=== PATIENT | male | born 1995 | race Two or more races ===

== ENCOUNTER 2016-11-23 07:38 | Emergency (ER) | payer OTHER ==
[~2016-11-23] VITALS: Ht 175.3 cm; Wt 63.5 kg
[2016-11-23 08:02] VITALS: BP 115/78
[2016-11-23] MEDS ORDERED: KETOROLAC TROMETH 30 MG/ML 1ML VIAL IM ONE (08:30)
== END 2016-11-23 09:00 | disposition home or self-care (01) ==
LOC: ER 07:38
DX: R07.89 Other chest pain (principal); F12.10 Cannabis abuse, uncomplicated; J45.909 Unspecified asthma, uncomplicated
CPT/HCPCS: 71020; 93005; 96372; 99284; J1885

== ENCOUNTER 2019-08-27 16:27 | Emergency (ER) | payer OTHER ==
[~2019-08-27] VITALS: Ht 167.6 cm; Wt 56.7 kg
[2019-08-27 17:11] LABS: Urine WBC None Seen /hpf (0 - 3)
[2019-08-27 17:20] LABS: Basophils # (auto) 0 10 ^3/uL (0-0.2); Basophils % (auto) 0.3 % (0.0-2.0); Eosinophils # (auto) 0 10 ^3/uL (0-0.8); Hematocrit 50.3 % (41.0-53.0); Hemoglobin 16.9 g/dL (13.5-17.5); Lymphocytes % (auto) 17.1 % (10.0-50.0); Mean Corpuscular Hemoglobin 31.3 pg (28.0-32.0); Mean Corpuscular Hgb Conc. 33.5 g/dL (32.0-36.0); Mean Corpuscular Volume 93.4 fL (80.0-100.0); Monocytes # (auto) 0.8 10 ^3/uL (0-1.3); Monocytes % (auto) 13.3 % (0.0-12.0); Neutrophils # (auto) 4.1 10 ^3/uL (1.6-8.6); Neutrophils % (auto) 69.3 % (37.0-80.0); Nucleated Red Blood Cells % 0.1 %; Platelet Count (auto) 221 10^3/uL (140-450); Red Blood Cells 5.38 10^6/uL (4.5-5.90); Red Cell Distribution Width 13.4 % (11.8-14.3); White Blood Cell 5.9 10^3/uL (4.4-10.8)
[2019-08-27 17:21] LABS: Urine Amorphous Crystal FEW /hpf (None Seen); Urine Bacteria NONE SEEN /hpf (None Seen); Urine Blood Negative /uL (Negative); Urine Mucus FEW (None Seen); Urine Specific Gravity 1.023 (1.001-1.035)
[2019-08-27 17:33] LABS: Albumin 4.6 g/dL (3.4-5.0); Anion Gap 8 (5-15); Blood Urea Nitrogen 11 mg/dL (7-18); Calcium 9.5 mg/dL (8.5-10.1); Carbon Dioxide 28 mmol/L (21-32); Chloride 102 mmol/L (98-107); Glucose 94 mg/dL (74-106); Potassium 3.7 mmol/L (3.5-5.1); Sodium 138 mmol/L (136-145)
[2019-08-27 17:39] LABS: Alanine Aminotransferase 20 U/L (16-61); Alkaline Phosphatase 65 U/L (45-117); Aspartate Aminotransferase 13 U/L (15-37); BUN/Creatinine Ratio 16.7; Bilirubin, Total 0.4 mg/dL (0.2-1.0); GFR African American 191 mL/min; GFR Non-African American 158 mL/min; Total Protein 8.5 g/dL (6.4-8.2)
[2019-08-27] MEDS ORDERED: MECLIZINE HCL 25 MG TAB PO ONE (18:00)
[2019-08-27 18:56] VITALS: BP 155/102
== END 2019-08-27 19:00 | disposition home or self-care (01) ==
LOC: ER 16:27
DX: R42 Dizziness and giddiness (principal); F41.9 Anxiety disorder, unspecified; R11.2 Nausea with vomiting, unspecified; R51 Headache; J45.909 Unspecified asthma, uncomplicated
CPT/HCPCS: 36415; 71046; 80053; 81001; 84484; 85025; 99284; J8597

== ENCOUNTER 2020-01-29 11:43 | Emergency (ER) | payer MEDICAID, OTHER ==
[~2020-01-29] VITALS: Ht 172.7 cm; Wt 62.6 kg
[2020-01-29] MEDS ORDERED: PANTOPRAZOLE 40 MG/10 ML VIAL INJ IV STA (11:52)
[2020-01-29] MEDS ORDERED: MORPHINE SULFATE 4 MG/ML SYR/VIAL IV ONE (12:00)
[2020-01-29] MEDS ORDERED: PROCHLORPERAZINE EDISYLATE 5 MG/ML 2ML VIAL IV ONE (12:00)
[2020-01-29] MEDS ORDERED: SODIUM CHLORIDE 0.9% 1,000 ML IVB ONE (12:00)
[2020-01-29 12:15] VITALS: BP 125/92
[2020-01-29 12:30] LABS: Basophils # (auto) 0 10 ^3/uL (0-0.2); Basophils % (auto) 0.3 % (0.0-2.0); Eosinophils # (auto) 0 10 ^3/uL (0-0.8); Eosinophils % (auto) 0.2 % (0.0-7.0); Lymphocytes # (auto) 1.1 10 ^3/uL (0.4-5.4); Lymphocytes % (auto) 11.5 % (10.0-50.0); Mean Corpuscular Hemoglobin 31.3 pg (28.0-32.0); Mean Corpuscular Hgb Conc. 33.3 g/dL (32.0-36.0); Mean Corpuscular Volume 94.2 fL (80.0-100.0); Monocytes # (auto) 0.4 10 ^3/uL (0-1.3); Monocytes % (auto) 4.7 % (0.0-12.0); Neutrophils # (auto) 7.8 10 ^3/uL (1.6-8.6); Neutrophils % (auto) 83.3 % (37.0-80.0); Nucleated Red Blood Cells % 0.2 %; Platelet Count (auto) 225 10^3/uL (140-450); White Blood Cell 9.4 10^3/uL (4.4-10.8)
[2020-01-29 12:50] LABS: Calcium 9.6 mg/dL (8.5-10.1); Potassium 3.6 mmol/L (3.5-5.1)
[2020-01-29 12:55] LABS: Albumin 4.5 g/dL (3.4-5.0); BUN/Creatinine Ratio 20.3; Bilirubin, Total 0.6 mg/dL (0.2-1.0); Total Protein 8.2 g/dL (6.4-8.2)
== END 2020-01-29 13:32 | disposition home or self-care (01) ==
LOC: ER 11:43
DX: F12.188 Cannabis abuse with other cannabis-induced disorder (principal); J45.909 Unspecified asthma, uncomplicated; F12.10 Cannabis abuse, uncomplicated; Z90.89 Acquired absence of other organs
CPT/HCPCS: 36415; 80053; 83690; 85025; 96361; 96374; 96375; 99284; C9113; J0780; J2270; J7030